=== PATIENT | female | born 1970 | race Caucasian/White ===

== ENCOUNTER 2024-10-17 14:04 | Emergency (ER) | payer MEDICAID ==
[~2024-10-17] VITALS: Ht 162.6 cm; Wt 66.0 kg
[2024-10-17 14:15] VITALS: BP 144/77; PULSE 85; RESP 16; TEMP 97.6; O2SAT 100
[2024-10-17] MEDS ORDERED: HYDROCODONE/ACETAMINOPHEN 5/325MG TABLET PO ONE (14:30)
[2024-10-17] MEDS: HYDROCODONE/ACETAMINOPHEN 5/325MG TABLET PO NR (19:33)
[2024-10-17] MEDS ORDERED: GABA100C MT (20:59)
[2024-10-17] MEDS ORDERED: TOPUD MT (20:59)
== END 2024-10-19 08:42 | disposition home or self-care (01) ==
LOC: ER 14:04
DX: M54.9 Dorsalgia, unspecified (principal); E11.9 Type 2 diabetes mellitus without complications; I10 Essential (primary) hypertension; Z88.6 Allergy status to analgesic agent
CPT/HCPCS: 72110; 99283